=== PATIENT | male | born 2000 | race Caucasian/White ===

== ENCOUNTER 2021-06-15 11:41 | Emergency (ER) | payer OTHER, SELFPAY ==
--- NOTE | ~2021-06-15 | XR_ITS ---
EXAMINATION: XR CHEST CLINICAL INFORMATION: Seizure COMPARISON: None TECHNIQUE: 2 views of the chest were obtained. FINDINGS: No significant abnormality is noted involving the heart, lungs, mediastinum, bony thorax or soft tissues. XR/XR chest 2V IMPRESSION: Unremarkable examination.
--- NOTE | ~2021-06-15 | CT_ITS ---
EXAMINATION: CT HEAD WITHOUT CONTRAST CLINICAL INFORMATION: Seizure. Head and neck injury. COMPARISON: None TECHNIQUE: Contiguous axial imaging was performed from the skull base to vertex without intravenous administration of contrast. This CT examination was performed using dose optimization techniques as appropriate, variously including the following: *Automated exposure control *Adjustment of mA and/or kV according to patient size (this includes techniques or standardized protocols for targeted exams where dose is matched to indication/reason for exam; i.e. extremities or head) *Use of iterative reconstruction technique DLP: 814 mGy-cm FINDINGS: There is no evidence of acute intracranial hemorrhage or territorial infarction. No abnormal mass effect or midline shift is seen. Linda to white matter differentiation is well preserved. No extra-axial fluid collections are identified. The ventricles are normal in size. There is no abnormal attenuation within the brain parenchyma. The osseous structures and soft tissues are normal. The mastoid air cells and visualized portions of the paranasal sinuses are well aerated. CT/CT head/brain wo con IMPRESSION: No acute intracranial pathology.
--- NOTE | ~2021-06-15 | CT_ITS ---
EXAMINATION: CT CERVICAL SPINE WITHOUT CONTRAST CLINICAL INFORMATION: Seizure. Head and neck injury. COMPARISON: None TECHNIQUE: Axial images through the cervical spine were performed without IV contrast. Exam is limited due to motion. Repeat axial images were performed. Sagittal and coronal reconstructions on the technologist workstation were performed. This CT examination was performed using dose optimization techniques as appropriate, variously including the following: *Automated exposure control *Adjustment of mA and/or kV according to patient size (this includes techniques or standardized protocols for targeted exams where dose is matched to indication/reason for exam; i.e. extremities or head) *Use of iterative reconstruction technique DLP: 1196. mGy-cm FINDINGS: Evaluation of the lower cervical spine is limited due to motion. Bone alignment is normal. There is no fracture or dislocation from C1 to C4. C5 C6 C7 and T1 vertebral bodies are not well evaluated due to motion artifact. Prevertebral soft tissues are normal. There is shotty cervical lymphadenopathy. Lung apices are not well evaluated due to motion artifact. CT/CT cervical spine wo con IMPRESSION: Very limited exam due to motion artifact. No evidence of fracture or dislocation from C1 to C4. The C5-T1 vertebral bodies are not well evaluated due to artifact. Repeat exam following sedation should be considered if clinically indicated. Fleischner guidelines were followed.
[2021-06-15 11:50] VITALS: BP 127/71; BP 151/85; PULSE 74; PULSE 92; RESP 16; TEMP 36.5; O2SAT 94; O2SAT 98; BMI 33.7
--- NOTE | 2021-06-15 12:02 | ECG_ITS ---
Test Reason : SEIZURE Blood Pressure : / mmHG Vent. Rate : 057 BPM Atrial Rate : 057 BPM P-R Int : 154 ms QRS Dur : 092 ms QT Int : 390 ms P-R-T Axes : -21 031 010 degrees QTc Int : 379 ms Sinus bradycardia with sinus arrhythmia Nonspecific ST and T wave abnormality Abnormal ECG No previous ECGs available Referred By: Imani Montenegro Electronically Signed By:LASHA VARMA MD
--- NOTE | 2021-06-15 12:16 | ED_ITS ---
HPI - Seizure General Chief Complaint: Seizure Stated Complaint: WITNESSED SZ BY MOM Time Seen by Provider: 06/15/21 12:00 Source: patient, family (Mother at bedside) and EMS Mode of arrival: EMS Limitations: no limitations History of Present Illness HPI Narrative: 21-year-old male with a past medical history of epilepsy currently on Depakote 4 times a day taking as prescribed per mother and patient being followed by [facility] with his last seizure being approximately 1 month ago due to COVID and before that approximately 1 year ago presenting to the ED via EMS after he had a witnessed seizure while he was at work at [employer]. Apparently 1 of the coworkers found him on the ground in the freezer and called EMS. Patient is unsure how long the seizure occurred. He he is having some posterior head otherwise he denies any other symptoms complaints or concerns at this time. He reports that this morning he was drinking some Pedialyte to help him with his hangover due to he drank some alcohol last night and smoked some marijuana. Otherwise he denies any additional drug usage. He denies any fevers, chills, dizziness, confusion, changes in vision, paresthesias, chest pain or shortness of breath, sore throat, cough, dyspnea exertion, orthopnea, palpitations, focal weakness, nausea/vomiting, diarrhea, abdominal pain, rashes, neck/back pain, dysuria, hematuria, abnormal penile discharge or any other symptoms complaints or concerns at this time. MD complaint: seizure Onset (ago): hour(s) (Prior to arrival) Description of Episode: loss of consciousness Witnessed: No Trauma: Yes Seizure History: Yes Place: Work Possible Precipitating Event: head injury and other (Recent alcohol and marijuana usage) Associated symptoms: denies other symptoms Treatments prior to arrival: none Related Data Allergies Allergy/AdvReac Type Severity Reaction Status Date / Time No Known Allergies Allergy Verified 06/15/21 12:00 Review of Systems 2 Review of Systems: Constitutional : No Fever, No Chills, No Night Sweats, No Fatigue, No Malaise ENT/Mouth : No Ear Pain, No Nasal Congestion, No Sinus Pain, No sore throat, No Rhinorrhea Eyes: No Eye Pain, No Swelling, No Redness, No Foreign Body, No Discharge, No Vision Changes Cardiovascular : No Chest Pain, No SOB, No Dyspnea on Exertion, No Orthopnea, No Palpitations Respiratory : No Cough, No Sputum, No Wheezing, No Dyspnea Gastrointestinal : No Nausea, No Vomiting, No Diarrhea, No Constipation, No abdominal Pain, No Hematochezia, No Melena Genitourinary : No Dysuria, No Urinary Frequency, No Urinary Incontinence, No Urgency, No Flank Pain Musculoskeletal : No Neck/Back Pain, No joint pain, No Myalgias Skin : No lacerations Neuro : + Seizure c head injury/loc and posterior head pain/headache, No Focal weakness, no general weakness, No Numbness, No Paresthesias, No Dizziness, No Headache Yes all other systems are reviewed and are negative ON LICENSE OF [facility] Past Medical History Attestation statement: The following information was validated with the patient. Social History Social History Alcohol intake: current Alcohol intake frequency: a few times a week Patient Tobacco Use Status: Never used Tobacco Use of substances other than those prescribed or required for medical reasons: Yes Substance Use Type: Marijuana Last Used Substance: Hours (ago) Advance Directives: No Advance Directives Information Provided: No Physical Exam Vital Signs: Vital Signs: Last Vital Signs Temp 97.7 F 06/15/21 11:50 Pulse 56 06/15/21 14:09 Resp 14 06/15/21 14:09 BP 131/88 06/15/21 14:09 Pulse Ox 99 06/15/21 14:09 BMI result Body Mass Index 33.7 Vital signs have been reviewed as normal and appeared to be correct. Blood pressure 151/85. Heart rate normal. Respiration rate normal. Temperature normal. Oxygen saturation normal. Appearance: Alert. Oriented X3. No acute distress. Head: Normal external exam. Normocephalic. Atraumatic. Able to rotate head bilaterally. Eyes: PERRLA. EOMI. No nystagmus noted. Conjunctiva and sclera normal. Eyelids normal. Corneal reflex normal. ENT: EAC normal. TM's Normal. Hearing normal. Pharynx normal. Uvula midline. tongue midline. Moist mucous membranes. No trismus noted. No drooling noted. No muffled voice noted. No nystagmus noted. Neck: Normal inspection. Neck supple. FROM. No adenopathy. Trachea midline. Thyroid Normal. No meningeal signs. No neck mass noted. Nontender. No signs of trauma. Patient is neuro intact bilaterally and distally on all 4 extremities. Reflexes intact bilaterally and distally on all 4 extremities. CVS: Normal heart rate and rhythm. Heart sound normal. No murmurs noted. Pulses normal throughout. Respiratory: No respiratory distress. Painless inspiration. Breath sounds normal. No wheezes/rales/rhonchi noted. Chest nontender. No accessory muscle usage noted or decreased air movement noted. Abdomen: Soft and nontender. Bowel sounds normal in all 4 quadrants. No distention noted. No organomegaly noted. No visible injury noted. Back: No CVA tenderness. Full range of motion noted. Nontender. No signs of trauma. Patient is neuro intact bilaterally and distally on all 4 extremities. Reflexes intact bilaterally and distally on all 4 extremities. Skin: Skin warm and dry. Normal skin color. Normal skin turgor. No rashes/lesions/lacerations noted. Extremities: No lower extremity edema. No calf tenderness is noted. Extremities exhibit normal range of motion. Extremities nontender. Able to shrug shoulders bilaterally and keep up against resistance. Neuro: Oriented X 3. No motor deficit. No sensory deficit. Reflexes normal. Moving all extremities. No focal motor deficits. Cranial nerves II-XI intact bilaterally. Facial strength normal. Normal cognition. Speech normal. Gait normal. Strength 5/5 throughout. No pronator drift. No tremor noted. No fasciculations noted. No rigidity noted. Muscle tone normal throughout. No asterixis noted. Course Course Course Narrative: 12:20pm - 21-year-old male with a past medical history of epileptic seizures currently on Depakote taking as prescribed presenting to the ED via EMS with mother at bedside after he had a witnessed seizure with unknown down time at work. Presenting with posterior head pain. Although on exam no obvious signs of trauma. No step-offs or deformities are noted to the scalp/cervical spine/thoracic/lumbar spine. Chest is nontender. Lungs clear to auscultation. CV RRR. Abdomen is soft and nontender. Plan: SEIZURE PRECAUTIONS with seizure pads placed. Will obtain a CT scan of brain/cervical spine, chest x-ray, EKG, labs then re-evaluate. Reevaluation(s) Reevaluation #1: - labs returned and all within normal limits. ETOH level negative. Depakote level less than 2.0. - CT scan of brain within normal limits no acute processes are noted. - CT scan cervical spine revealed no evidence of fracture or dislocation from C1-C4. The C1 through T1 vertebrae bodies are not well evaluated due to artifact. Therefore I re-evaluated the patient with the mother at bedside and he continues to deny any mid cervical and paracervical muscular. There are no step-offs or deformities noted. He has full range of motion without complaining of pain. - therefore I discussed the patient's Depakote level with the mother at bedside and he admitted that he has not taken his Depakote medications in a few days and mother is not aware about this therefore will give him a loading dose of a 1000 mg at this time p.o. - I also explained to the mother if he is not having any cervical tenderness and we will not have to re-scanned him and mother is agreeable as patient continues to deny this despite multiple reexaminations in front of the mother and she was there for although reexaminations and she was there when the patient continued to deny any neck pain therefore at this time no additional imaging or labs indicated. Will DC home with instructions return if any new or worsening symptoms follow up with his neurologist and to start taking his apical as previously prescribed. Patient and mother at bedside understand and agree with this plan. Time: 14:49 MDM - Seizure Medical Records Attestation: I reviewed the patient's medical records. Lab Data Attestation: I reviewed the patient's lab results. Result diagrams: 06/15/21 12:33 06/15/21 12:33 Labs: Lab Results 06/15/21 06/15/21 06/15/21 Range/Units 12:11 12:33 12:33 WBC 10.5 (4.8-10.8) X10*3/uL RBC 5.21 (4.60-5.80) X10*6/uL Hgb 16.5 (14.0-18.0) g/dl Hct 48.0 (42.0-52.0) % MCV 92.1 (80.0-98.0) fL MCH 31.7 (27.0-33.0) pg MCHC 34.4 (31.0-36.0) g/dl RDW 12.7 (11.0-16.0) % Plt Count 212 (160-400) X10*3/uL MPV 11.6 (9.4-12.4) fL Immature Gran % (Auto) 0.5 H (0.0-0.4) % Neut % (Auto) 71.5 (45-73) % Lymph % (Auto) 22.6 (20-40) % Zavala % (Auto) 4.7 (2-11) % Eos % (Auto) 0.3 (0-4) % Baso % (Auto) 0.4 (0-2) % Lymph # (Auto) 2.4 (1.2-4.9) X10*3/uL Zavala # (Auto) 0.5 (0.1-1.2) X10*3/uL Eos # (Auto) 0.0 (0.0-0.4) X10*3/uL Baso # (Auto) 0.0 (0.0-0.2) X10*3/uL Abs Immat Gran (auto) 0.05 H (0.00-0.03) X10*3/uL Absolute Neuts (auto) 7.5 (2.0-8.3) x10*3/uL Absolute Nucleated RBC 0.000 (0.0-0.012) X10*3/uL Nucleated RBC % (auto) 0.0 (0.0-0.2) /100WBC PT (9.9-13.0) SEC INR (0.9-1.1) Sodium 143 (135-145) mmol/L Potassium 4.7 (3.3-5.1) mmol/L Chloride 107 (96-108) mmol/L Carbon Dioxide 28 (22-29) mmol/L Anion Gap 13 (12-20) BUN 13 (9-16) mg/dL Creatinine 0.81 (0.5-1.4) mg/dL Estim Creat Clear Calc 177.8 Estimated GFR > 60 POC Glucose 84 (60-115) mg/dL Random Glucose 83 (60-115) mg/dL Calcium 9.9 (8.4-10.2) mg/dL Magnesium 2.1 (1.6-2.6) mg/dL Total Bilirubin 0.4 (0.0-1.0) mg/dL AST 18 (5-37) U/L ALT 24 (0-40) U/L Alkaline Phosphatase 64 (39-117) U/L Total Creatine Kinase (38-174) U/L Total Protein 7.6 (6.5-8.0) g/dL Albumin 5.0 (3.5-5.0) g/dL Valproic Acid < 2.0 L (50.0-100.0) mcg/mL Ethyl Alcohol mg/dL 06/15/21 06/15/21 06/15/21 Range/Units 12:33 12:38 12:38 WBC (4.8-10.8) X10*3/uL RBC (4.60-5.80) X10*6/uL Hgb (14.0-18.0) g/dl Hct (42.0-52.0) % MCV (80.0-98.0) fL MCH (27.0-33.0) pg MCHC (31.0-36.0) g/dl RDW (11.0-16.0) % Plt Count (160-400) X10*3/uL MPV (9.4-12.4) fL Immature Gran % (Auto) (0.0-0.4) % Neut % (Auto) (45-73) % Lymph % (Auto) (20-40) % Zavala % (Auto) (2-11) % Eos % (Auto) (0-4) % Baso % (Auto) (0-2) % Lymph # (Auto) (1.2-4.9) X10*3/uL Zavala # (Auto) (0.1-1.2) X10*3/uL Eos # (Auto) (0.0-0.4) X10*3/uL Baso # (Auto) (0.0-0.2) X10*3/uL Abs Immat Gran (auto) (0.00-0.03) X10*3/uL Absolute Neuts (auto) (2.0-8.3) x10*3/uL Absolute Nucleated RBC (0.0-0.012) X10*3/uL Nucleated RBC % (auto) (0.0-0.2) /100WBC PT 12.1 (9.9-13.0) SEC INR 1.1 (0.9-1.1) Sodium (135-145) mmol/L Potassium (3.3-5.1) mmol/L Chloride (96-108) mmol/L Carbon Dioxide (22-29) mmol/L Anion Gap (12-20) BUN (9-16) mg/dL Creatinine (0.5-1.4) mg/dL Estim Creat Clear Calc Estimated GFR POC Glucose (60-115) mg/dL Random Glucose (60-115) mg/dL Calcium (8.4-10.2) mg/dL Magnesium (1.6-2.6) mg/dL Total Bilirubin (0.0-1.0) mg/dL AST (5-37) U/L ALT (0-40) U/L Alkaline Phosphatase (39-117) U/L Total Creatine Kinase 98 (38-174) U/L Total Protein (6.5-8.0) g/dL Albumin (3.5-5.0) g/dL Valproic Acid (50.0-100.0) mcg/mL Ethyl Alcohol < 10 mg/dL Imaging Data CT scan of brain/cervical spine without contrast: Attestation: I personally reviewed and interpreted this imaging study as follows: Radiologist's impression: FINDINGS: There is no evidence of acute intracranial hemorrhage or territorial infarction. No abnormal mass effect or midline shift is seen. Linda to white matter differentiation is well preserved. No extra-axial fluid collections are identified. The ventricles are normal in size. There is no abnormal attenuation within the brain parenchyma. The osseous structures and soft tissues are normal. The mastoid air cells and visualized portions of the paranasal sinuses are well aerated. ? CT/CT head/brain wo con IMPRESSION: No acute intracranial pathology. FINDINGS: Evaluation of the lower cervical spine is limited due to motion. Bone alignment is normal. There is no fracture or dislocation from C1 to C4. C5 C6 C7 and T1 vertebral bodies are not well evaluated due to motion artifact. Prevertebral soft tissues are normal. There is shotty cervical lymphadenopathy. Lung apices are not well evaluated due to motion artifact. CT/CT cervical spine wo con IMPRESSION: Very limited exam due to motion artifact. No evidence of fracture or dislocation from C1 to C4. The C5-T1 vertebral bodies are not well evaluated due to artifact. Repeat exam following sedation should be considered if clinically indicated.? ? Fleischner guidelines were followed. Chest x-ray: Attestation: I personally reviewed and interpreted this imaging study as follows: Radiologist's impression: FINDINGS: No significant abnormality is noted involving the heart, lungs, mediastinum, bony thorax or soft tissues. XR/XR chest 2V IMPRESSION: Unremarkable examination. ECG Data Attestation: I personally reviewed and interpreted this ECG as follows: ECG interpretation date: 06/15/21 ECG interpretation time: 12:11 Interpretation: Sinus bradycardia with sinus arrhythmia with ventricular rate of [address] and T-wave abnormalities no acute ischemic changes are noted. No prior EKGs in our system to compare to at this time. Critical Care Time Critical Care Time Critical Care Time: Yes Total Critical Care Time: 60 Attestation: I personally attest to this time spent taking care of the patient Discharge Plan Discharge Clinical Impression: Epileptic seizure Patient Disposition: Home, Self-Care Instructions: Divalproex (By mouth), Epilepsy (DC) Additional Instructions: It is very important that you take your Depakote as prescribed because you will have breakthrough seizures. I did not write a new prescription for Depakote as you and your mother told me that you have plenty of bottles and medications of Depakote at home please continue to take this. Return if any new or worsening symptoms. Follow up with her primary care provider and neurologist. Referrals: Physician,Unknown J [Primary Care Provider] - 2 days (Your PCP) [facility] [Provider Group] - 2 days Stand Alone Forms: Work/School Release Print Language: Cambodian
[2021-06-15 12:21] LABS: Glucose, Whole Blood 84 mg/dL (60-115)
[2021-06-15] MEDS: 0.9 % Sodium Chloride 1,000 ML 999 ML IVCONT (12:39)
[2021-06-15 13:13] LABS: MANUAL DIFF FLAG NO
[2021-06-15 13:14] LABS: Basophils Percent Auto 0.4 % (0-2); Eosinophils Percent Auto 0.3 % (0-4); Hemoglobin 16.5 g/dl (14.0-18.0); Imm Gran Abs Auto 0.05 X10*3/uL (0.00-0.03); Imm Gran Pct Auto 0.5 % (0.0-0.4); Lymphocytes Absolute Auto 2.4 X10*3/uL (1.2-4.9); Lymphocytes Percent Auto 22.6 % (20-40); Mean Corpuscular HGB Conc 34.4 g/dl (31.0-36.0); Mean Corpuscular Hemoglobin 31.7 pg (27.0-33.0); Mean Corpuscular Volume 92.1 fL (80.0-98.0); Mean Platelet Volume 11.6 fL (9.4-12.4); Monocytes Absolute Auto 0.5 X10*3/uL (0.1-1.2); Monocytes Percent Auto 4.7 % (2-11); Neutrophils Absolute Auto 7.5 x10*3/uL (2.0-8.3); Neutrophils Percent Auto 71.5 % (45-73); Platelet Count 212 X10*3/uL (160-400); Red Blood Count 5.21 X10*6/uL (4.60-5.80); Red Cell Distribution Width 12.7 % (11.0-16.0); White Blood Count 10.5 X10*3/uL (4.8-10.8)
[2021-06-15 13:19] LABS: INTERNATIONAL NORM RATIO 1.1 (0.9-1.1); Prothrombin Time 12.1 SEC (9.9-13.0)
[2021-06-15 13:28] LABS: Ethanol < 10 mg/dL
[2021-06-15 13:30] LABS: Alanine Aminotransferase 24 U/L (0-40); Alkaline Phosphatase 64 U/L (39-117); Anion Gap 13 (12-20); Aspartate Amino Transferase 18 U/L (5-37); Bilirubin Total 0.4 mg/dL (0.0-1.0); Blood Urea Nitrogen 13 mg/dL (9-16); Calcium 9.9 mg/dL (8.4-10.2); Carbon Dioxide 28 mmol/L (22-29); Chloride 107 mmol/L (96-108); Creatinine Clr Calc Pharmacy 177.8; Estimated Glomerular Filt Rate > 60; Glucose Random 83 mg/dL (60-115); Magnesium 2.1 mg/dL (1.6-2.6); Potassium 4.7 mmol/L (3.3-5.1); Sodium 143 mmol/L (135-145); Total Protein 7.6 g/dL (6.5-8.0)
[2021-06-15 14:00] LABS: Valproate < 2.0 mcg/mL (50.0-100.0)
[2021-06-15 14:09] VITALS: BP 131/88; PULSE 56; RESP 14; O2SAT 99
[2021-06-15] MEDS: Divalproex Sodium 500 MG TABLET.DR 1000 MG PO (15:08)
== END 2021-06-15 15:17 | disposition home or self-care (01) ==
PROVIDERS: Physician Assistant Medical; Emergency Provider Emergency Medicine
DX: G40.909 Epilepsy, unspecified, not intractable, without status epilepticus (principal); R51.9 Headache, unspecified; Z91.14 Patient's other noncompliance with medication regimen
CPT/HCPCS: 36415; 70450; 71046; 72125; 80053; 80164; 82077; 82550; 82947; 83735; 85025; 85610; 93005; 96360; 99284; 99291